=== PATIENT | female | born 1980 | race Caucasian/White ===

== ENCOUNTER 2024-09-23 23:05 | Inpatient (IN) | payer OTHER ==
[~2024-09-23] VITALS: Ht 180.3 cm; Wt 201.9 kg
[2024-09-24 00:01] LABS: BASOPHILS ABSOLUTE AUTO 0.06 K/mm3 (0.00-0.23); BASOPHILS PERCENT AUTO 1 % (0-2); EOSINOPHILS ABSOLUTE AUTO 0.07 K/mm3 (0.00-0.68); EOSINOPHILS PERCENT AUTO 1 % (0-6); Hematocrit 41.1 % (33.0-51.0); Hemoglobin 14.6 g/dL (11.5-16.0); IMMATURE GRAN ABSOLUTE AUTO 0.03 K/mm3 (0.00-0.10); IMMATURE GRAN PERCENT AUTO 0 % (0-1); LYMPHOCYTES ABSOLUTE AUTO 2.69 K/mm3 (0.84-5.20); LYMPHOCYTES PERCENT AUTO 33 % (21-46); MONOCYTES ABSOLUTE AUTO 0.54 K/mm3 (0.16-1.47); MONOCYTES PERCENT AUTO 7 % (4-13); Mean Corpuscular HGB 32.4 pg (26.0-34.0); Mean Corpuscular HGB Conc 35.5 g/dL (31.5-36.5); Mean Corpuscular Volume 91 fL (80-100); Mean Platelet Volume 10.5 fL (9.1-12.4); NEUTROPHILS ABSOLUTE AUTO 4.72 K/mm3 (1.96-9.15); NEUTROPHILS PERCENT AUTO 58 % (41-73); Platelet Count 240 K/mm3 (150-400); RDW Coefficient Variation 12.1 % (11.7-14.2); RDW Standard Deviation 40.4 fL (35.1-46.3); White Blood Cell Count 8.11 K/mm3 (4.00-11.30)
[2024-09-24 00:16] LABS: D-Dimer, Quantitative 0.5 mg/L FEU (0.00-0.52); International Normalized Ratio 1.02; Prothrombin Time Results 10.9 Sec (9.7-11.5)
[2024-09-24 00:28] LABS: Magnesium, Blood 1.8 mg/dL (1.6-2.4); Thyroid Stimulating Hormone 10.1 uIU/mL (0.360-4.800)
[2024-09-24] MEDS ORDERED: Metoprolol Tartrate 1 MG/ML 5 ML VIAL IV ONE (00:40)
[2024-09-24 00:50] LABS: Albumin, Blood 3.7 g/dL (3.4-5.0); Albumin/Globulin Ratio 0.8 (0.8-1.8); Bilirubin, Total 0.6 mg/dL (0.1-1.0); Bun/Creatinine Ratio 17.1 (12.0-20.0); Calcium, Blood 9.5 mg/dL (8.5-10.1); Creatinine, Blood 0.82 mg/dL (0.40-1.00); Globulin, Blood 4.6 g/dL (2.2-4.0); Phosphorus, Blood 2.9 mg/dL (2.5-4.9); Potassium, Blood 4.1 mmol/L (3.5-5.5); Total Protein, Blood 8.3 g/dL (6.4-8.2)
[2024-09-24 02:15] LABS: Source, Urine Clean Catch
[2024-09-24 02:17] LABS: Base Excess Venous -3.7 mmol/L; PCO2 Venous 33.3 mmHg (38-42); pH Blood Venous 7.41 (7.34-7.37)
[2024-09-24] MEDS ORDERED: FLU VACC TS2024-25(6MOS UP)/PF 45 MCG/0.5 ML SYRINGE IM ONE (02:25)
[2024-09-24 02:28] LABS: Bilirubin, Urine Neg (Neg); Blood, Urine 4+ (Neg); Glucose Qualitative, Urine Neg (Neg); Ketones, Urine Neg (Neg); Leukocyte Esterase, Urine Neg (Neg); Nitrite, Urine Neg (Neg); Protein, Urine 3+ (Neg); Specific Gravity, Urine 1.015 (1.003-1.022); Urobilinogen, Urine NORM (Normal)
[2024-09-24 02:46] LABS: U Amphetamine Screen Not Detected; U Barbituate Screen Not Detected; U Benzodiazapine Screen Not Detected; U Buprenorphine Screen Not Detected; U Cannabinoids Screen Not Detected; U Cocaine Screen Not Detected; U Methadone Screen Not Detected; U Methamphetamine Screen Not Detected; U Opiates Screen Not Detected; U Oxycodone Screen Not Detected; U Phencyclidine Screen Not Detected
[2024-09-24 02:52] LABS: Appearance, Urine Clear (Clear); Color, Urine Yellow (P-Yellow)
[2024-09-24 02:53] LABS: Bacteria Few /hpf; Red Blood Cells, Urine 0-2 /hpf (0-2); Squamous Epithelial Cells Mod /hpf (Few); White Blood Cells, Urine 0-2 /hpf (0-5)
[2024-09-24 03:45] VITALS: BP 133/56
[2024-09-24] MEDS ORDERED: METO50ER PO (04:20)
[2024-09-24] MEDS ORDERED: ATOR20 PO (04:20)
[2024-09-24] MEDS ORDERED: SERT50 PO (04:21)
[2024-09-24] MEDS ORDERED: METF500 PO (04:21)
[2024-09-24] MEDS ORDERED: LOSA50 PO (04:22)
[2024-09-24] MEDS ORDERED: SUMA25 PO (04:23)
[2024-09-24] MEDS ORDERED: EUTHYROX125 MCG PO (04:46)
[2024-09-24] MEDS ORDERED: METFORMIN HCL500 MG PO (04:46)
[2024-09-24] MEDS ORDERED: BUSP10 PO (04:47)
--- NOTE | 2024-09-24 05:21 | NUR ---
SHIFT SUMMARY NOC PT A/O X 4. PLEASANT AND COOPERATIVE WITH CARE. VSS. ADMIT FOR NEW ONSET AFIB RVR. PT HAS AT HOME AND HR ELEVATED FOR 8 HOURS REACHING 170'S-190'S PT REPORTS TAKING DOSE OF METOPROLOL, BUT ALSO REPORTED THAT THEY HAD TAKEN THEIR FIRST DOSE OF METFORMIN FOR DM2. PT GIVEN CARDIZEM BY EMS AND IV LOPRESSOR IN ED AND HR HAS BEEN IN 80'S SINUS RHTYHM. 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 ECHO IS ALSO SCHEDULED FOR TODAY. PT HAS MILES AND USING CPAP FOR SLEEP. PT LA 2.2 AND NO IVF HAVE BEEN STARTED OF YET. PT CURRENTLY RESTING WITH SPOUSE BEDSIDE, BED IN LOWEST POSITION, AND CALL LIGHT WITHIN REACH.
[2024-09-24 05:33] LABS: BASOPHILS ABSOLUTE AUTO 0.06 K/mm3 (0.00-0.23); BASOPHILS PERCENT AUTO 1 % (0-2); EOSINOPHILS ABSOLUTE AUTO 0.08 K/mm3 (0.00-0.68); EOSINOPHILS PERCENT AUTO 1 % (0-6); Hematocrit 39.4 % (33.0-51.0); Hemoglobin 13.6 g/dL (11.5-16.0); IMMATURE GRAN ABSOLUTE AUTO 0.04 K/mm3 (0.00-0.10); IMMATURE GRAN PERCENT AUTO 1 % (0-1); LYMPHOCYTES ABSOLUTE AUTO 2.94 K/mm3 (0.84-5.20); LYMPHOCYTES PERCENT AUTO 36 % (21-46); MONOCYTES ABSOLUTE AUTO 0.48 K/mm3 (0.16-1.47); MONOCYTES PERCENT AUTO 6 % (4-13); Mean Corpuscular HGB 32.2 pg (26.0-34.0); Mean Corpuscular HGB Conc 34.5 g/dL (31.5-36.5); Mean Corpuscular Volume 93 fL (80-100); Mean Platelet Volume 9.7 fL (9.1-12.4); NEUTROPHILS ABSOLUTE AUTO 4.66 K/mm3 (1.96-9.15); NEUTROPHILS PERCENT AUTO 56 % (41-73); Platelet Count 238 K/mm3 (150-400); RDW Coefficient Variation 12.1 % (11.7-14.2); RDW Standard Deviation 41.3 fL (35.1-46.3); Red Blood Cell Count 4.23 M/mm3 (3.80-5.20); White Blood Cell Count 8.26 K/mm3 (4.00-11.30)
[2024-09-24 06:15] LABS: Albumin, Blood 3.5 g/dL (3.4-5.0); Albumin/Globulin Ratio 0.9 (0.8-1.8); Bilirubin, Total 0.5 mg/dL (0.1-1.0); Bun/Creatinine Ratio 17.7 (12.0-20.0); Calcium, Blood 9.3 mg/dL (8.5-10.1); Creatinine, Blood 0.79 mg/dL (0.40-1.00); Potassium, Blood 3.7 mmol/L (3.5-5.5); Total Protein, Blood 7.5 g/dL (6.4-8.2)
--- NOTE | 2024-09-24 06:33 | NUR ---
SHIFT SUMMARY NOC PT A/O X 4. PLEASANT AND COOPERATIVE WITH CARE. VSS. ADMIT FOR NEW ONSET AFIB RVR. PT HAS AT HOME AND HR ELEVATED FOR 8 HOURS REACHING 170'S-190'S PT REPORTS TAKING DOSE OF METOPROLOL, BUT ALSO REPORTED THAT THEY HAD TAKEN THEIR FIRST DOSE OF METFORMIN FOR DM2. PT GIVEN CARDIZEM BY EMS AND IV LOPRESSOR IN ED AND HR HAS BEEN IN 80'S SINUS RHTYHM. 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 ECHO IS ALSO SCHEDULED FOR TODAY. PT HAS MILES AND USING CPAP FOR SLEEP. PT CURRENTLY RESTING WITH SPOUSE BEDSIDE, BED IN LOWEST POSITION, AND CALL LIGHT WITHIN REACH.
[2024-09-24 07:20] VITALS: BP 121/57
[2024-09-24] MEDS ORDERED: Enoxaparin 40 MG/0.4 ML SYR SC SCH ×2 (09:00→21:00)
[2024-09-24] MEDS ORDERED: Metoprolol Succinate 25 MG TABCR PO SCH (09:00)
[2024-09-24 11:30] VITALS: BP 132/82
[2024-09-24] MEDS ORDERED: SUMAtriptan succinate 50 MG Tab PO PRN (14:35)
[2024-09-24 16:05] VITALS: BP 129/60
--- NOTE | 2024-09-24 17:59 | NUR ---
SHIFT SUMMARY: PT A&O X4. PLEASANT AND COOPERATIVE WITH CARE. SBA TO RESTROOM. VSS. PT HAS REMAINED IN SINUS RHYHTM T/O SHIFT. DR. BASS ARRIVED THIS SHIFT AND REQUESTED REPEAT EKG - COMPLETED AND PLACED IN HARD CHART. DR. BASS ADDED ELIQUIS TO BE STARTED BUT D/T OCCASIONAL RECTAL BLEEDING PT TO HOLD ELIQUIS UNTIL OUTPT GI CONSULT IS COMPLETED. ECHO COMPLETED THIS AM. NEW MEDICATION TAMOCOR TO BE STARTED TONIGHT PER DR. BASS. CALL LIGHT IN REACH. BED IN LOWEST POSITION.
[2024-09-24 20:53] VITALS: BP 152/89
[2024-09-24] MEDS ORDERED: Atorvastatin 10 MG Tab PO SCH (21:00)
[2024-09-24] MEDS ORDERED: Flecainide Acetate 100 MG Tab PO SCH (21:00)
[2024-09-24] MEDS ORDERED: Sertraline HCl 50 MG Tab PO SCH (21:00)
[2024-09-24] MEDS ORDERED: Apixaban 5 MG Tab PO SCH (21:00)
[2024-09-24] MEDS ORDERED: BusPIRone HCl 10 MG Tab PO SCH (21:00)
[2024-09-24 23:38] VITALS: BP 139/81
[2024-09-25 02:49] VITALS: BP 117/67
[2024-09-25 04:20] LABS: BASOPHILS ABSOLUTE AUTO 0.05 K/mm3 (0.00-0.23); BASOPHILS PERCENT AUTO 1 % (0-2); EOSINOPHILS PERCENT AUTO 2 % (0-6); Hematocrit 35.4 % (33.0-51.0); Hemoglobin 12.3 g/dL (11.5-16.0); IMMATURE GRAN ABSOLUTE AUTO 0.03 K/mm3 (0.00-0.10); IMMATURE GRAN PERCENT AUTO 1 % (0-1); LYMPHOCYTES ABSOLUTE AUTO 2.58 K/mm3 (0.84-5.20); LYMPHOCYTES PERCENT AUTO 40 % (21-46); MONOCYTES ABSOLUTE AUTO 0.38 K/mm3 (0.16-1.47); MONOCYTES PERCENT AUTO 6 % (4-13); Mean Corpuscular HGB 32.4 pg (26.0-34.0); Mean Corpuscular HGB Conc 34.7 g/dL (31.5-36.5); Mean Corpuscular Volume 93 fL (80-100); Mean Platelet Volume 10.2 fL (9.1-12.4); NEUTROPHILS ABSOLUTE AUTO 3.35 K/mm3 (1.96-9.15); NEUTROPHILS PERCENT AUTO 52 % (41-73); Platelet Count 209 K/mm3 (150-400); RDW Coefficient Variation 12.1 % (11.7-14.2); RDW Standard Deviation 41.1 fL (35.1-46.3); White Blood Cell Count 6.49 K/mm3 (4.00-11.30)
[2024-09-25 04:48] LABS: Bun/Creatinine Ratio 17.5 (12.0-20.0); Calcium, Blood 8.9 mg/dL (8.5-10.1); Creatinine, Blood 0.68 mg/dL (0.40-1.00); Potassium, Blood 3.6 mmol/L (3.5-5.5)
--- NOTE | 2024-09-25 05:33 | NUR ---
SHIFT SUMMARY PATIENT ALERT, ORIENTED x4. ABLE TO MAKE NEEDS KNOWN TO STAFF. PATIENT ON TELE, SR 70-80s DURING THE NIGHT. DENIED CHEST PAIN. NO OTHER CARDIAC EVENTS NOTED. BP STABLE. ON RA WHILE AWAKE, USING CPAP WHILE SLEEPING, SPO2 >90%. PATIENT AMBULATING INTO BATHROOM INDEPENDENTLY, ADEQUATE OUTPUT. LOVENOX DC'd AT START OF SHIFT D/T PATIENT'S Hx OF RECTAL BLEEDING, DENIED ANY BLEEDING SINCE ADMISSION. NO OTHER CHANGES THIS SHIFT, WILL REPORT TO DAY SHIFT RN.
[2024-09-25] MEDS ORDERED: Levothyroxine Sodium 0.125 MG Tab PO SCH (06:00)
[2024-09-25 07:53] VITALS: BP 133/77
[2024-09-25] MEDS ORDERED: Losartan Potassium 50 MG Tab PO SCH (09:00)
[2024-09-25] MEDS ORDERED: Metoprolol Succinate 50 MG TABCR PO SCH (09:00)
--- NOTE | 2024-09-25 10:40 | NUR ---
am note this rn assumed care at 0700. vital signs stable. tele sinus rhythm 70s. patient is alert and oriented x4. neuro is intact. patient is able to make needs known and use call light approrpiately. patient is independent in the room. patient denies pain, chest pain/pressure or shortness of breath. see shift assessment for further detials.
--- NOTE | 2024-09-25 11:52 | NUR ---
update md dane in to see patient. plan to discharge home
[2024-09-25] MEDS ORDERED: Flecainide Acet50 MG PO (13:11)
--- NOTE | 2024-09-25 13:47 | NUR ---
DISCHARGE EDUCATION this rn went over discharge education, new medications and follow up appointment with pcp on october 01 and [facility] on october 19. patient verbalized understanding that jadon will be in contact to set up an EP appointment. this rn went over flecainide with the patient, which is a new medication and provided with educational handout. this rn went over medication to stop, metformin. patient verbalized understanding of what medications to take. patient belongings gathered and waiting for ride to show up. medications faxed to [facility]
== END 2024-09-25 13:54 | disposition home or self-care (01) | DRG 309 ==
LOC: ER 23:05 → PCU 23:06
PROVIDERS: Emergency Medicine; Family Medicine; ADMIT Student in an Organized Health Care Education/Training Program
DX: I48.0 Paroxysmal atrial fibrillation (principal); E87.20 Acidosis, unspecified; K62.5 Hemorrhage of anus and rectum; Z68.43 Body mass index [BMI] 50.0-59.9, adult; E03.9 Hypothyroidism, unspecified; F32.A Depression, unspecified; G47.33 Obstructive sleep apnea (adult) (pediatric); E11.65 Type 2 diabetes mellitus with hyperglycemia; E86.0 Dehydration; I10 Essential (primary) hypertension; E66.01 Morbid (severe) obesity due to excess calories; Z79.84 Long term (current) use of oral hypoglycemic drugs; Z88.2 Allergy status to sulfonamides; Z79.890 Hormone replacement therapy
CPT/HCPCS: 36415; 71046; 80048; 80053; 81001; 82803; 83605; 83735; 84100; 84436; 84443; 84484; 84703; 85025; 85379; 85610; 85730; 93005; 93010; 93306; 94660; 94762; 96372; 96374; 99285-25; A9270; G0378; J1650

== ENCOUNTER 2024-10-13 07:57 | Emergency (ER) | payer OTHER ==
[~2024-10-13] VITALS: Ht 180.3 cm; Wt 195.0 kg
[~2024-10-13 07:57] MED LIST: ATOR20 PO; BUSP10 PO; EUTHYROX125 MCG PO; Flecainide Acet50 MG PO; LOSA50 PO; METF500 PO; METFORMIN HCL500 MG PO; METO50ER PO; SERT50 PO; SUMA25 PO
[2024-10-13] MEDS ORDERED: Metoprolol Tartrate 50 MG Tab PO ONE (08:25)
[2024-10-13] MEDS ORDERED: Flecainide Acetate 100 MG Tab PO ONE (08:25)
[2024-10-13] MEDS ORDERED: NS 1,000 ML IV SCH (08:30)
[2024-10-13] MEDS ORDERED: Metoprolol Succinate 50 MG TABCR PO ONE (08:40)
[2024-10-13 08:42] LABS: BASOPHILS ABSOLUTE AUTO 0.03 K/mm3 (0.00-0.23); BASOPHILS PERCENT AUTO 1 % (0-2); EOSINOPHILS ABSOLUTE AUTO 0.09 K/mm3 (0.00-0.68); EOSINOPHILS PERCENT AUTO 2 % (0-6); Hematocrit 40.6 % (33.0-51.0); Hemoglobin 14.4 g/dL (11.5-16.0); IMMATURE GRAN ABSOLUTE AUTO 0.02 K/mm3 (0.00-0.10); IMMATURE GRAN PERCENT AUTO 0 % (0-1); LYMPHOCYTES ABSOLUTE AUTO 2.35 K/mm3 (0.84-5.20); LYMPHOCYTES PERCENT AUTO 40 % (21-46); MONOCYTES ABSOLUTE AUTO 0.34 K/mm3 (0.16-1.47); MONOCYTES PERCENT AUTO 6 % (4-13); Mean Corpuscular HGB 32.8 pg (26.0-34.0); Mean Corpuscular HGB Conc 35.5 g/dL (31.5-36.5); Mean Corpuscular Volume 93 fL (80-100); NEUTROPHILS ABSOLUTE AUTO 3.03 K/mm3 (1.96-9.15); NEUTROPHILS PERCENT AUTO 52 % (41-73); Platelet Count 188 K/mm3 (150-400); RDW Coefficient Variation 12.5 % (11.7-14.2); RDW Standard Deviation 42.5 fL (35.1-46.3); Red Blood Cell Count 4.39 M/mm3 (3.80-5.20); White Blood Cell Count 5.86 K/mm3 (4.00-11.30)
[2024-10-13 09:12] LABS: Albumin, Blood 3.4 g/dL (3.4-5.0); Albumin/Globulin Ratio 0.7 (0.8-1.8); Bilirubin, Total 0.8 mg/dL (0.1-1.0); Bun/Creatinine Ratio 18.9 (12.0-20.0); Calcium, Blood 8.9 mg/dL (8.5-10.1); Creatinine, Blood 0.74 mg/dL (0.40-1.00); Globulin, Blood 4.6 g/dL (2.2-4.0); Potassium, Blood 3.8 mmol/L (3.5-5.5); Thyroid Stimulating Hormone 6.14 uIU/mL (0.360-4.800)
[2024-10-13] MEDS ORDERED: Metoprolol Tartrate 1 MG/ML 5 ML VIAL IV PRN (09:40)
== END 2024-10-13 10:35 | disposition home or self-care (01) ==
LOC: ER 07:57
PROVIDERS: Family Medicine
DX: I48.91 Unspecified atrial fibrillation (principal); Z88.2 Allergy status to sulfonamides; Z88.8 Allergy status to other drugs, medicaments and biological substances; Z79.890 Hormone replacement therapy; Z79.899 Other long term (current) drug therapy
CPT/HCPCS: 80053; 84443; 85025; 93005; 93010; 99285-25; A9270; J7030